=== PATIENT | male | born 1960 | race Caucasian/White ===

== ENCOUNTER → 2016-12-11 | Outpatient (CLI) | payer BC, OTHER | END | disposition home or self-care (01) | LOC: MW.CHFP 11:28 | PROVIDERS: ATTEND Physician Assistant | DX: K21.9 Gastro-esophageal reflux disease without esophagitis (principal) | CPT/HCPCS: 87338 ==

== ENCOUNTER 2017-04-05 08:28 | Emergency (ER) | payer BC, OTHER ==
--- NOTE | 2017-04-05 08:43 | EDM.PDOC ---
ED HPI GENERAL MEDICAL PROBLEM - General Chief Complaint: Laceration Stated Complaint: CUT FINGER ON RT HAND Time Seen by Provider: 04/05/17 08:42 Source of Information: Reports: Patient - History of Present Illness INITIAL COMMENTS - FREE TEXT/NARRATIVE: HISTORY AND PHYSICAL: History of present illness: []Patient working on a trailer to his pickup received crush injury to the distal tip of his right index finger with 2 cm linear laceration running from nailbed around to palmar surface no avulsion of nail bed associated no other injury no fever nausea vomiting chills sweats unaffected above the wrist, essentially unaffected above the distal phalanx entire limb is neurovascularly intact No fever nausea vomiting chills sweats Review of systems: As per history of present illness and below otherwise all systems reviewed and negative. Past medical history: As per history of present illness and as reviewed below otherwise noncontributory. Surgical history: As per history of present illness and as reviewed below otherwise noncontributory. Social history: No reported history of drug or alcohol abuse. Family history: As per history of present illness and as reviewed below otherwise noncontributory. Physical exam: HEENT: Atraumatic, normocephalic, pupils reactive, negative for conjunctival pallor or scleral icterus, mucous membranes moist, throat clear, neck supple, nontender, trachea midline. Lungs: Clear to auscultation, breath sounds equal bilaterally, chest nontender. Heart: S1S2, regular, negative for clicks, rubs, or JVD. Abdomen: Soft, nondistended, nontender. Negative for masses or hepatosplenomegaly. Negative for costovertebral tenderness. Pelvis: Stable nontender. Genitourinary: Deferred. Rectal: Deferred. Extremities: Atraumatic, negative for cords or calf pain. Neurovascular unremarkable. Neuro: Awake, alert, oriented. Cranial nerves II through XII unremarkable. Cerebellum unremarkable. Motor and sensory unremarkable throughout. Exam nonfocal. Skin as per history of present illness Diagnostics: []Right fifth digit Therapeutics: []Tetanus status up-to-date per patient 2013 Bactrim double strength by mouth twice a day #20 no refill Standard wound care Wound cleansed and explored Tube dressing splint for comfort and protection Impression: []Linear Laceration 2 cm distal right second digit Definitive disposition and diagnosis as appropriate pending reevaluation and review of above. Right 2-Index finger Pain Score (Numeric/FACES): 10 - Related Data Allergies Allergy/AdvReac Type Severity Reaction Status Date / Time Penicillins Allergy Cannot Verified 04/05/17 08:41 Remember Home Meds: Home Meds Omeprazole [Prilosec] 40 mg PO DAILY 10/01/15 [History] Past Medical History - Past Health History Medical/Surgical History: Denies Medical/Surgical History HEENT History: Reports: None Cardiovascular History: Reports: None Respiratory History: Reports: None Gastrointestinal History: Reports: GERD Genitourinary History: Reports: None Musculoskeletal History: Reports: Arthritis, Back Pain, Chronic Other Musculoskeletal History: states arthritis in feet Neurological History: Reports: None Psychiatric History: Reports: Anxiety Endocrine/Metabolic History: Reports: None Hematologic History: Reports: None Immunologic History: Reports: None Oncologic (Cancer) History: Reports: None Dermatologic History: Reports: None - Past Surgical History Musculoskeletal Surgical History: Reports: Other (See Below) Social & Family History - Tobacco Use Smoking Status *Q: Light Tobacco Smoker Years of Tobacco use: 30 Packs/Tins Daily: 1 - Recreational Drug Use Recreational Drug Use: No Drug Use in Last 12 Months: No ED ROS GENERAL - Review of Systems Review Of Systems: ROS reveals no pertinent complaints other than HPI. ED EXAM, SKIN/RASH Exam: See Below Course - Vital Signs Last Recorded V/S: Last Vital Signs Temp 36.9 C 04/05/17 08:37 Pulse 69 04/05/17 08:37 Resp 20 04/05/17 08:37 BP 148/97 H 04/05/17 08:37 Pulse Ox 95 04/05/17 08:37 - Orders/Labs/Meds Orders: Active Orders 24 hr Category Date Time Status Fingers Fourth Digit Rt F8 [CR] Stat Exams 04/05/17 08:41 Taken Meds: Medications Discontinued Medications Generic Name Dose Route Start Last Admin Trade Name Freq PRN Reason Stop Dose Admin Bacitracin 1 dose 04/05/17 08:50 04/05/17 09:10 Bacitracin Oint 1 Gm TOP 04/05/17 08:51 1 dose ONETIME ONE Administration Lidocaine HCl 20 ml 04/05/17 08:50 04/05/17 09:11 Xylocaine 1% INJECT 04/05/17 08:51 20 ml ONETIME ONE Administration Departure - Departure Time of Disposition: 09:27 Disposition: Home, Self-Care 01 Condition: Good Clinical Impression: Laceration - Discharge Information Referrals: PCP,None [Primary Care Provider] - Forms: ED Department Discharge Additional Instructions: Tube dressing Splint for comfort and protection Medication as prescribed Sutures out in 10-14 days Standard wound care instructions Keep wound clean and dry for 48 hours The following information is given to patients seen in the emergency department who are being discharged to home. This information is to outline your options for follow-up care. We provide all patients seen in our emergency department with a follow-up referral. The need for follow-up, as well as the timing and circumstances, are variable depending upon the specifics of your emergency department visit. If you don't have a primary care physician on staff, we will provide you with a referral. We always advise you to contact your personal physician following an emergency department visit to inform them of the circumstance of the visit and for follow-up with them and/or the need for any referrals to a consulting specialist. The emergency department will also refer you to a specialist when appropriate. This referral assures that you have the opportunity for follow-up care with a specialist. All of these measure are taken in an effort to provide you with optimal care, which includes your follow-up. Under all circumstances we always encourage you to contact your private physician who remains a resource for coordinating your care. When calling for follow-up care, please make the office aware that this follow-up is from your recent emergency room visit. If for any reason you are refused follow-up, please contact the [facility] emergency department at and asked to speak to the emergency department charge nurse. - My Orders Last 24 Hours: My Active Orders 04/05/17 08:41 Fingers Fourth Digit Rt F8 [CR] Stat - Assessment/Plan Last 24 Hours: My Active Orders 04/05/17 08:41 Fingers Fourth Digit Rt F8 [CR] Stat
[2017-04-05] MEDS ORDERED: Bacitracin Oint 1 GM U/D Packet TOP ONE (08:50)
[2017-04-05] MEDS ORDERED: Lidocaine 1% 20 ML MDV INJECT ONE (08:50)
[2017-04-05 09:50] VITALS: BP 142/89
--- NOTE | 2017-04-06 13:24 | CR ---
EXAM DATE: 04/05/17 PATIENT'S AGE: 56 Patient: SAMUEL MAYA Facility: [place], [place] Site . Site : 1960 Study: XRay Extremity Right [id number]/27/2017 8:58:10 AM Ordering Physician: Doctor Martines Final Report: HISTORY: Crush injury. Pain. Technique: Right index finger 3 views. Comparison: None. Findings: Index finger soft tissue swelling. No fracture or dislocation. Mild degenerative change of the thumb MCP joint. Joint spaces are otherwise maintained. No radiopaque foreign body. Impression: Soft tissue swelling. No acute bone abnormality. No radiopaque foreign body. Dictated by Lennox Nunez MD @ Apr 05 2017 9:07AM (Electronic Signature) Report Signed by Proxy. KEVIN
== END 2017-04-05 09:40 | disposition home or self-care (01) ==
LOC: MW.ED 08:28
DX: S61.210A Laceration without foreign body of right index finger without damage to nail, initial encounter (principal); K21.9 Gastro-esophageal reflux disease without esophagitis; F17.210 Nicotine dependence, cigarettes, uncomplicated; Z88.0 Allergy status to penicillin; Z79.899 Other long term (current) drug therapy; W23.1XXA Caught, crushed, jammed, or pinched between stationary objects, initial encounter
CPT/HCPCS: 73140-26-F8; 73140-F8; 99283

== ENCOUNTER 2017-05-20 22:41 | Emergency (ER) | payer BC, OTHER ==
[2017-05-20] MEDS ORDERED: Sodium Chloride 0.9% 1,000 ML IV ONE ×2 (23:11)
[2017-05-20 23:25] LABS: ACETAMINOPHEN < 3.0 ug/mL; CHLORIDE,CL 110 mmol/L (98-110); SODIUM,NA 141 mmol/L (136-146)
[2017-05-20] MEDS ORDERED: Ziprasidone Mesylate 20 MG Vial IM ONE (23:50)
[2017-05-20] MEDS ORDERED: Ziprasidone Mesylate 20 MG Vial ONE (23:52)
[2017-05-20] MEDS ORDERED: Water For Injection, Sterile 20 ML ONE (23:54)
[2017-05-21] MEDS ORDERED: Ziprasidone Mesylate 20 MG Vial IM ONE (00:23)
--- NOTE | 2017-05-21 00:24 | EDM.PDOCBH ---
ED HPI GENERAL MEDICAL PROBLEM - General Chief Complaint: Behavioral/Psych Stated Complaint: OVERDOSE Time Seen by Provider: 05/20/17 22:48 Source of Information: Reports: Patient History Limitations: Reports: No Limitations - History of Present Illness INITIAL COMMENTS - FREE TEXT/NARRATIVE: HISTORY AND PHYSICAL: History of present illness: [56-year-old male feeling depressed and drinking alcohol this evening now brought in by police after alleging that he took an overdose of clonazepam. Patient states he was feeling suicidal and he took the entire bottle of clonazepam. He denies other coingestants. Patient did not injure himself in any other way .He has no homicidal ideation.denies recent illness. Patient denies ever having been admitted for inpatient psychiatric care Review of systems: As per history of present illness and below otherwise all systems reviewed and negative. Past medical history: As per history of present illness and as reviewed below otherwise noncontributory. Surgical history: As per history of present illness and as reviewed below otherwise noncontributory. Social history: No reported history of drug or alcohol abuse. Family history: As per history of present illness and as reviewed below otherwise noncontributory. Physical exam: HEENT: Atraumatic, normocephalic, pupils reactive, negative for conjunctival pallor or scleral icterus, mucous membranes moist, throat clear, neck supple, nontender, trachea midline. Lungs: Clear to auscultation, breath sounds equal bilaterally, chest nontender. Heart: S1S2, regular, negative for clicks, rubs, or JVD. Abdomen: Soft, nondistended, nontender. Negative for masses or hepatosplenomegaly. Negative for costovertebral tenderness. Pelvis: Stable nontender. Genitourinary: Deferred. Rectal: Deferred. Extremities: Atraumatic, negative for cords or calf pain. Neurovascular unremarkable. Neuro: Awake, alert, clinically intoxicated and variably cooperative . Cranial nerves II through XII unremarkable. Cerebellum unremarkable. Motor and sensory unremarkable throughout. Exam nonfocal. Diagnostics: [EKG with normal sinus rhythm at 3 normal axis no STEMI interpreted by me] Therapeutics: [iV fluids administered] Impression: [] Plan: [patient depressed now status post alleged overdose of benzodiazepine.Patient is protecting his airway and requires no respiratory support. Full workup unremarkable. given that patient has been endorsing suicidality admits to intentional overdose case discussed with psychiatry at [facility] Dr. Suzanne Meyer accepts the patient in transfer. Patient also discussed with Dr. Polanco emergency medicine doctor who will see the patient when he arrives at [place]. Patient stable for transfer Critical care 73 minutes Definitive disposition and diagnosis as appropriate pending reevaluation and review of above. - Related Data Allergies Allergy/AdvReac Type Severity Reaction Status Date / Time Penicillins Allergy Cannot Verified 04/05/17 08:41 Remember Home Meds: Home Meds Omeprazole [Prilosec] 40 mg PO DAILY 10/01/15 [History] ClonazePAM [KlonoPIN] 05/21/17 [History] Past Medical History - Past Health History Medical/Surgical History: Denies Medical/Surgical History HEENT History: Reports: None Cardiovascular History: Reports: None Respiratory History: Reports: None Gastrointestinal History: Reports: GERD Genitourinary History: Reports: None Musculoskeletal History: Reports: Arthritis, Back Pain, Chronic Other Musculoskeletal History: states arthritis in feet Neurological History: Reports: None Psychiatric History: Reports: Anxiety Endocrine/Metabolic History: Reports: None Hematologic History: Reports: None Immunologic History: Reports: None Oncologic (Cancer) History: Reports: None Dermatologic History: Reports: None - Infectious Disease History Infectious Disease History: Reports: Chicken Pox, Measles, Mumps - Past Surgical History Musculoskeletal Surgical History: Reports: Other (See Below) Social & Family History - Family History Family Medical History: Noncontributory - Tobacco Use Smoking Status *Q: Light Tobacco Smoker Years of Tobacco use: 30 Packs/Tins Daily: 1 - Caffeine Use Caffeine Use: Reports: None, Soda Caffeine Use Comment: non-caffeinated - Recreational Drug Use Recreational Drug Use: No Drug Use in Last 12 Months: No ED ROS GENERAL - Review of Systems Review Of Systems: See Below (history of present illness) ED EXAM, BEHAVIORAL HEALTH - Physical Exam Exam: See Below (history of present illness) COURSE, BEHAVIORAL HEALTH COMP - Course Vital Signs: Last Vital Signs Temp 36.4 C 05/20/17 22:44 Pulse 84 05/20/17 22:44 Resp 16 05/20/17 22:44 BP 120/83 05/20/17 22:44 Pulse Ox 93 L 05/20/17 22:44 Orders, Labs, Meds: Active Orders 24 hr Category Date Time Status EKG 12 Lead [EKG Documentation Completion] [RC] STAT Care 05/20/17 22:53 Active Peripheral IV Insertion Adult [OM.PC] Stat Oth 05/20/17 22:49 Ordered Laboratory Tests 05/20/17 05/20/17 05/21/17 Range/Units 22:59 22:59 00:05 WBC 7.80 (4.0-11.0) K/uL RBC 4.29 L (4.50-5.90) M/uL Hgb 12.8 L (13.0-17.0) g/dL Hct 36.7 L (38.0-50.0) % MCV 85.5 (80.0-98.0) fL MCH 29.8 (27.0-32.0) pg MCHC 34.9 (31.0-37.0) g/dL RDW Std Deviation 40.9 (28.0-62.0) fl RDW Coeff of Jina 13 (11.0-15.0) % Plt Count 216 (150-400) K/uL MPV 10.10 (7.40-12.00) fL Neut % (Auto) 61.8 (48.0-80.0) % Lymph % (Auto) 28.6 (16.0-40.0) % [place] % (Auto) 8.5 (0.0-15.0) % Eos % (Auto) 1.0 (0.0-7.0) % Baso % (Auto) 0.1 (0.0-1.5) % Neut # (Auto) 4.8 (1.4-5.7) K/uL Lymph # (Auto) 2.2 (0.6-2.4) K/uL [place] # (Auto) 0.7 (0.0-0.8) K/uL Eos # (Auto) 0.1 (0.0-0.7) K/uL Baso # (Auto) 0.0 (0.0-0.1) K/uL Nucleated RBC % 0.0 /100WBC Nucleated RBCs # 0 K/uL Sodium 141 (136-146) mmol/L Potassium 4.0 (3.5-5.1) mmol/L Chloride 110 (98-110) mmol/L Carbon Dioxide 23 (21-31) mmol/L BUN 12 (6.0-23.0) mg/dL Creatinine 0.9 (0.6-1.5) mg/dL Est Cr Clr Drug Dosing TNP Estimated GFR (MDRD) > 60.0 ml/min Glucose 90 (60-110) mg/dL Calcium 9.0 (8.8-10.8) mg/dL Total Bilirubin 0.4 (0.1-1.5) mg/dL AST 24 (5-40) IU/L ALT 26 (8-54) IU/L Alkaline Phosphatase 78 (40-150) Total Protein 6.6 (6.0-8.0) g/dL Albumin 3.6 (3.5-5.0) g/dL Globulin 3.0 (2.0-3.5) g/dL Albumin/Globulin Ratio 1.2 L (1.3-2.8) Salicylates < 5.0 (0-20) mg/dL Urine Opiates Screen NEGATIVE (NEGATIVE) Ur Oxycodone Screen NEGATIVE (NEGATIVE) Urine Methadone Screen NEGATIVE (NEGATIVE) Acetaminophen < 3.0 ug/mL Ur Barbiturates Screen NEGATIVE (NEGATIVE) Ur Phencyclidine Scrn NEGATIVE (NEGATIVE) Ur Amphetamine Screen NEGATIVE (NEGATIVE) U Methamphetamines Scrn NEGATIVE (NEGATIVE) U Benzodiazepines Scrn NEGATIVE (NEGATIVE) U Cocaine Metab Screen NEGATIVE (NEGATIVE) U Marijuana (THC) Screen NEGATIVE (NEGATIVE) Medications Discontinued Medications Generic Name Dose Route Start Last Admin Trade Name Freq PRN Reason Stop Dose Admin Sodium Chloride 1,000 mls @ 999 mls/hr 05/20/17 23:11 05/20/17 23:15 Normal Saline IV 05/21/17 00:11 999 mls/hr STAT ONE Administration Sodium Chloride 1,000 mls @ 999 mls/hr 05/20/17 23:11 Normal Saline IV 05/21/17 00:11 STAT ONE Sterile Water Confirm 05/20/17 23:54 05/21/17 00:04 Sterile Water For Injection Administered 05/20/17 23:55 1.2 ml Dose Administration 20 mls @ as directed .ROUTE .STK-MED ONE Ziprasidone 10 mg 05/20/17 23:50 05/20/17 23:59 Geodon IM 05/20/17 23:51 10 mg ONETIME ONE Administration Ziprasidone Confirm 05/20/17 23:52 05/21/17 00:02 Geodon Administered 05/20/17 23:53 Not Given Dose 20 mg .ROUTE .STK-MED ONE Ziprasidone 10 mg 05/21/17 00:23 Geodon IM 05/21/17 00:24 ONETIME ONE Departure - Departure Time of Disposition: 00:30 Disposition: DC/Tfer to Psych Hosp/Unit 65 Condition: Fair Clinical Impression: Depression, Suicidal ideation, Intentional benzodiazepine overdose - Discharge Information - My Orders Last 24 Hours: My Active Orders 05/20/17 22:49 Peripheral IV Insertion Adult [OM.PC] Stat 05/20/17 22:53 EKG 12 Lead [EKG Documentation Completion] [RC] STAT - Assessment/Plan Last 24 Hours: My Active Orders 05/20/17 22:49 Peripheral IV Insertion Adult [OM.PC] Stat 05/20/17 22:53 EKG 12 Lead [EKG Documentation Completion] [RC] STAT
[2017-05-21 04:43] VITALS: BP 107/66
== END 2017-05-21 01:18 ==
LOC: MW.ED 22:41
DX: T42.4X2A Poisoning by benzodiazepines, intentional self-harm, initial encounter (principal); F32.9 Major depressive disorder, single episode, unspecified; K21.9 Gastro-esophageal reflux disease without esophagitis; F17.210 Nicotine dependence, cigarettes, uncomplicated; Z88.0 Allergy status to penicillin; Z79.899 Other long term (current) drug therapy
CPT/HCPCS: 36415; 80053; 80305; 85025; 93005; 96360; 96361; 96372; 99285; G0480; J3486; J7040; 99291

== ENCOUNTER 2017-06-10 23:43 | Emergency (ER) | payer BC ==
--- NOTE | 2017-06-10 23:49 | EDM.PDOC ---
ED HPI GENERAL MEDICAL PROBLEM - General Chief Complaint: Chest Pain Stated Complaint: PT HAS CHEST PAINS Time Seen by Provider: 06/10/17 23:48 - History of Present Illness INITIAL COMMENTS - FREE TEXT/NARRATIVE: HISTORY AND PHYSICAL: History of present illness: Patient 56-year-old white male presents with a concern of medical clearance for incarceration is currently in custody of law enforcement Review of systems: As per history of present illness and below otherwise all systems reviewed and negative. Past medical history: As per history of present illness and as reviewed below otherwise noncontributory. Surgical history: As per history of present illness and as reviewed below otherwise noncontributory. Social history: No reported history of drug or alcohol abuse. Family history: As per history of present illness and as reviewed below otherwise noncontributory. Physical exam: HEENT: Atraumatic, normocephalic, pupils reactive, negative for conjunctival pallor or scleral icterus, mucous membranes moist, throat clear, neck supple, nontender, trachea midline. Lungs: Clear to auscultation, breath sounds equal bilaterally, chest nontender. Heart: S1S2, regular, negative for clicks, rubs, or JVD. Abdomen: Soft, nondistended, nontender. Negative for masses or hepatosplenomegaly. Negative for costovertebral tenderness. Pelvis: Stable nontender. Genitourinary: Deferred. Rectal: Deferred. Extremities: Atraumatic, negative for cords or calf pain. Neurovascular unremarkable. Neuro: Awake, alert, oriented. Cranial nerves II through XII unremarkable. Cerebellum unremarkable. Motor and sensory unremarkable throughout. Exam nonfocal. Diagnostics: EKG Therapeutics: None Impression: #1 medically clear for incarceration Definitive disposition and diagnosis as appropriate pending reevaluation and review of above. - Related Data Allergies Allergy/AdvReac Type Severity Reaction Status Date / Time Penicillins Allergy Cannot Verified 04/05/17 08:41 Remember Home Meds: Home Meds Omeprazole [Prilosec] 40 mg PO DAILY 10/01/15 [History] ClonazePAM [KlonoPIN] 05/21/17 [History] Past Medical History - Past Health History Medical/Surgical History: Denies Medical/Surgical History HEENT History: Reports: None Cardiovascular History: Reports: None Respiratory History: Reports: None Gastrointestinal History: Reports: GERD Genitourinary History: Reports: None Musculoskeletal History: Reports: Arthritis, Back Pain, Chronic Other Musculoskeletal History: states arthritis in feet Neurological History: Reports: None Psychiatric History: Reports: Anxiety Endocrine/Metabolic History: Reports: None Hematologic History: Reports: None Immunologic History: Reports: None Oncologic (Cancer) History: Reports: None Dermatologic History: Reports: None - Infectious Disease History Infectious Disease History: Reports: Chicken Pox, Measles, Mumps - Past Surgical History Musculoskeletal Surgical History: Reports: Other (See Below) Social & Family History - Family History Family Medical History: Noncontributory - Tobacco Use Smoking Status *Q: Light Tobacco Smoker Years of Tobacco use: 30 Packs/Tins Daily: 1 - Caffeine Use Caffeine Use: Reports: None, Soda Caffeine Use Comment: non-caffeinated - Recreational Drug Use Recreational Drug Use: No Drug Use in Last 12 Months: No ED ROS GENERAL - Review of Systems Review Of Systems: ROS reveals no pertinent complaints other than HPI. ED EXAM, GENERAL - Physical Exam Exam: See Below (See dictated) Course - Orders/Labs/Meds Orders: Active Orders 24 hr Category Date Time Status EKG 12 Lead [EKG Documentation Completion] [RC] STAT Care 06/10/17 23:48 Ordered Departure - Departure Time of Disposition: 23:49 Disposition: Home, Self-Care 01 Condition: Good Clinical Impression: Medical clearance for incarceration - Discharge Information Additional Instructions: The following information is given to patients seen in the emergency department who are being discharged to home. This information is to outline your options for follow-up care. We provide all patients seen in our emergency department with a follow-up referral. The need for follow-up, as well as the timing and circumstances, are variable depending upon the specifics of your emergency department visit. If you don't have a primary care physician on staff, we will provide you with a referral. We always advise you to contact your personal physician following an emergency department visit to inform them of the circumstance of the visit and for follow-up with them and/or the need for any referrals to a consulting specialist. The emergency department will also refer you to a specialist when appropriate. This referral assures that you have the opportunity for followup care with a specialist. All of these measure are taken in an effort to provide you with optimal care, which includes your followup. Under all circumstances we always encourage you to contact your private physician who remains a resource for coordinating your care. When calling for followup care, please make the office aware that this follow-up is from your recent emergency room visit. If for any reason you are refused follow-up, please contact the [facility] emergency department at and asked to speak to the emergency department charge nurse. Follow-up primary medical doctor on today's return as needed as discussed - My Orders Last 24 Hours: My Active Orders 06/10/17 23:48 EKG 12 Lead [EKG Documentation Completion] [RC] STAT - Assessment/Plan Last 24 Hours: My Active Orders 06/10/17 23:48 EKG 12 Lead [EKG Documentation Completion] [RC] STAT
[2017-06-11 00:11] VITALS: BP 133/98
== END 2017-06-11 ==
LOC: MW.ED 23:43
DX: Z02.89 Encounter for other administrative examinations (principal); F17.210 Nicotine dependence, cigarettes, uncomplicated
CPT/HCPCS: 93005; 99282; 99285-25

== ENCOUNTER 2018-02-17 11:04 | Emergency (ER) | payer SELFPAY ==
[2018-02-17 11:19] VITALS: BP 121/70
[2018-02-17] MEDS ORDERED: Lidocaine 1% 10 ML MDV INJECT ONE (11:37)
--- NOTE | 2018-02-17 11:37 | EDM.PDOC ---
ED HPI GENERAL MEDICAL PROBLEM - General Chief Complaint: Genitourinary Problem Stated Complaint: UNK ISSUES Time Seen by Provider: 02/17/18 11:23 - History of Present Illness INITIAL COMMENTS - FREE TEXT/NARRATIVE: HISTORY AND PHYSICAL: History of present illness: The patient is a 57-year-old male with a history of hypertension and GERD who presents with complaints of a persistent erection since 5 AM. This has never happened before and he did not do any illicit drugs and has no pre-existing medical problems related blood disorders or problems. The patient states that he takes medications for blood pressure and takes trazodone and he looked that up on the computer and he was concerned that that may have caused this to happen. He says that he has pain in the penis but no abdominal pain no scrotal pain and he was able to urinate this morning. He has no other systemic complaints and no fevers chills or flank pain. Review of systems: As per history of present illness and below otherwise all systems reviewed and negative. Past medical history: As per history of present illness and as reviewed below otherwise noncontributory. Surgical history: As per history of present illness and as reviewed below otherwise noncontributory. Social history: No reported history of drug or alcohol abuse. Family history: As per history of present illness and as reviewed below otherwise noncontributory. Physical exam: General: Well-developed well-nourished man who is nontoxic and vital signs are noted by me. HEENT: Atraumatic, normocephalic negative for conjunctival pallor or scleral icterus, mucous membranes moist, throat clear, neck supple, nontender, trachea midline. Lungs: Clear to auscultation, breath sounds equal bilaterally, chest nontender. Heart: S1S2, regular and rhythm no overt murmurs Abdomen: Soft, nondistended, nontender. Negative for masses or hepatosplenomegaly. NABS Pelvis: Stable nontender. Genitourinary: Testicles are descended bilaterally and there is no gross lymphadenopathy. A firm erection is seen is only mildly tender to palpation Rectal: Deferred. Extremities: Atraumatic, negative for cords or calf pain. Neurovascular unremarkable. Neuro: Awake, alert, oriented. Cranial nerves II through XII unremarkable. Cerebellum unremarkable. Motor and sensory unremarkable throughout. Exam nonfocal. Diagnostics: [] Therapeutics: Lidocaine without epinephrine, phenylephrine in normal saline for Dr. Rasheed's procedure Please see Dr. Rasheed's consult note for procedure and in ED care Dr. Rasheed was counseled at 1135 am Please note that the patient had a vasovagal event during the procedure. He was given medications per Dr. Rasheed's direction. Dressing was placed by Dr. Rasheed which he needs to remove tomorrow. Patient will continue to be monitored from a hemodynamic standpoint and discharged we have planned when he is feeling improved. Impression: Priapism/persistent erection, improved Definitive disposition and diagnosis as appropriate pending reevaluation and review of above. erection Pain Score (Numeric/FACES): 8 - Related Data Allergies Allergy/AdvReac Type Severity Reaction Status Date / Time Penicillins Allergy Cannot Verified 02/17/18 11:15 Remember Home Meds: Home Meds Indomethacin [Indocin] 50 mg PO TID 02/17/18 [History] Lisinopril 10 mg PO DAILY 02/17/18 [History] Omeprazole 40 mg PO DAILY 02/17/18 [History] traZODone HCl [Trazodone HCl] 50 mg PO BEDTIME 02/17/18 [History] Past Medical History - Past Health History Medical/Surgical History: Denies Medical/Surgical History HEENT History: Reports: None Cardiovascular History: Reports: Hypertension Respiratory History: Reports: None Gastrointestinal History: Reports: GERD Genitourinary History: Reports: None Musculoskeletal History: Reports: Arthritis, Back Pain, Chronic, Gout Other Musculoskeletal History: states arthritis in feet Neurological History: Reports: None Psychiatric History: Reports: Anxiety Endocrine/Metabolic History: Reports: None Hematologic History: Reports: None Immunologic History: Reports: None Oncologic (Cancer) History: Reports: None Dermatologic History: Reports: None - Infectious Disease History Infectious Disease History: Reports: Chicken Pox, Measles, Mumps - Past Surgical History Head Surgeries/Procedures: Reports: None Musculoskeletal Surgical History: Reports: Other (See Below) Social & Family History - Family History Family Medical History: Noncontributory - Tobacco Use Smoking Status *Q: Current Every Day Smoker Years of Tobacco use: 25 Packs/Tins Daily: 0.1 - Caffeine Use Caffeine Use: Reports: Coffee Caffeine Use Comment: non-caffeinated - Alcohol Use Days Per Week of Alcohol Use: 3 Number of Drinks Per Day: 2 Total Drinks Per Week: 6 - Recreational Drug Use Recreational Drug Use: No ED ROS GENERAL - Review of Systems Review Of Systems: ROS reveals no pertinent complaints other than HPI. ED EXAM, GENERAL - Physical Exam Exam: See Below (see dictation) Course - Vital Signs Last Recorded V/S: Last Vital Signs Temp 36.0 C 02/17/18 11:17 Pulse 76 02/17/18 11:17 Resp 20 02/17/18 11:17 BP 121/70 02/17/18 11:17 Pulse Ox 97 02/17/18 11:17 - Orders/Labs/Meds Orders: Active Orders 24 hr Category Date Time Status Notify Provider Consults [RC] ASDIRECTED Care 02/17/18 11:46 Active Consult to Physician [CONS] Stat Cons 02/17/18 11:46 Active Phenylephrine [Jose-Synephrine] 10 mg Med 02/17/18 11:45 Active Sodium Chloride 0.9% [Normal Saline] 500 ml IV ONETIME Medication Orders Phenylephrine HCl 10 mg/ (Sodium Chloride) 501 mls @ 10 mls/hr IV ONETIME ONE Stop: 02/19/18 13:50 Meds: Medications Generic Name Dose Route Start Last Admin Trade Name Freq PRN Reason Stop Dose Admin Phenylephrine HCl 10 mg/ 501 mls @ 10 mls/hr 02/17/18 11:45 Sodium Chloride IV 02/19/18 13:50 ONETIME ONE Discontinued Medications Generic Name Dose Route Start Last Admin Trade Name Freq PRN Reason Stop Dose Admin Hydrocodone Bitart/Acetaminophen 1 tab 02/17/18 11:52 02/17/18 12:08 [place] 325-7.5 Mg PO 02/17/18 11:53 1 tab ONETIME ONE Administration Lidocaine HCl 10 ml 02/17/18 11:37 Xylocaine 1% INJECT 02/17/18 11:38 ONETIME ONE Lidocaine HCl 10 ml 02/17/18 11:37 Xylocaine-Mpf 1% INJECT 02/17/18 11:38 ONETIME ONE Departure - Departure Time of Disposition: 13:00 Disposition: Home, Self-Care 01 Condition: Good Clinical Impression: Prolonged erection - Discharge Information Referrals: PCP,None [Primary Care Provider] - Forms: ED Department Discharge Additional Instructions: The following information is given to patients seen in the emergency department who are being discharged to home. This information is to outline your options for follow-up care. We provide all patients seen in our emergency department with a follow-up referral. The need for follow-up, as well as the timing and circumstances, are variable depending upon the specifics of your emergency department visit. If you don't have a primary care physician on staff, we will provide you with a referral. We always advise you to contact your personal physician following an emergency department visit to inform them of the circumstance of the visit and for follow-up with them and/or the need for any referrals to a consulting specialist. The emergency department will also refer you to a specialist when appropriate. This referral assures that you have the opportunity for followup care with a specialist. All of these measure are taken in an effort to provide you with optimal care, which includes your followup. Under all circumstances we always encourage you to contact your private physician who remains a resource for coordinating your care. When calling for followup care, please make the office aware that this follow-up is from your recent emergency room visit. If for any reason you are refused follow-up, please contact the [facility] emergency department at and ask to speak to the emergency department charge nurse. [facility]- [facility] [address] [place] [id number] [facility] [address] [place] [id number] Please remove the dressing tomorrow that was placed in the ER by Dr. Rasheed. Please call and schedule a follow-up appointment with your provider or one of our providers in the next 2 days and return to ER as needed and as discussed. Push hydration. - My Orders Last 24 Hours: My Active Orders 02/17/18 11:45 Phenylephrine [Jose-Synephrine] 10 mg Sodium Chloride 0.9% [Normal Saline] 500 ml IV ONETIME 02/17/18 11:46 Notify Provider Consults [RC] ASDIRECTED Consult to Physician [CONS] Stat - Assessment/Plan Last 24 Hours: My Active Orders 02/17/18 11:45 Phenylephrine [Jose-Synephrine] 10 mg Sodium Chloride 0.9% [Normal Saline] 500 ml IV ONETIME 02/17/18 11:46 Notify Provider Consults [RC] ASDIRECTED Consult to Physician [CONS] Stat
[2018-02-17] MEDS ORDERED: Acetaminophen/HYDROcodone 325-7.5 MG Tab PO ONE (11:52)
[2018-02-17] MEDS ORDERED: GLYCOPYRROLATE 0.2 MG/ML IVPUSH ONE ×3 (12:47→12:54)
[2018-02-17] MEDS ORDERED: Sodium Chloride 0.9% 1,000 ML IV ONE (13:06)
--- NOTE | 2018-02-17 17:41 | CONS ---
DATE OF CONSULTATION: DATE OF : 1960 PRIMARY CARE PHYSICIAN: None PCP He is 57-year-old. He was seen in the emergency room with priapism. Apparently, he woke up at 5 in the morning with an erection. I was called about him to go see him in the emergency room about 11:00 a.m. or 11:30, somewhere around that time. He thinks it might be related to the trazodone that he took at night. Has had no previous similar problems in the past. PHYSICAL EXAMINATION: GENERAL: He is alert. He is oriented. He is in pain. GASTROINTESTINAL: The abdominal exam is negative. GENITOURINARY: External genitalia priapism. Testicles are normal. CONCLUSION: Priapism. PLAN: Irrigation, which was accomplished by mixing 10 mg of Jose-Synephrine in 500 mL of normal saline. The penile shaft was painted with Betadine and sterile towels were applied around it. Lidocaine 1% was infiltrated in the skin at a 90 degrees angle in the midshaft, then an 18-gauge needle was introduced in the corpus cavernosum and the erection was taken down by irrigating the corpora cavernosa with the prepared solution. Towards the end of the treatment, the detumescence was complete. The light pressure dressing was applied using 4 x 4s and Coban tape. The patient had a vasovagal reaction and I started IV fluids on him and gave him a total of 0.3 mg of Robinul IV. He was stable when I left and then he was turned over to the ER physician. CLARK / CRISPIN /[id number]
== END 2018-02-17 13:38 | disposition home or self-care (01) ==
LOC: MW.ED 11:04
DX: N48.30 Priapism, unspecified (principal); I10 Essential (primary) hypertension; F17.210 Nicotine dependence, cigarettes, uncomplicated; K21.9 Gastro-esophageal reflux disease without esophagitis; M19.90 Unspecified osteoarthritis, unspecified site; Z79.899 Other long term (current) drug therapy; Z88.0 Allergy status to penicillin
CPT/HCPCS: 96361; 96374; 96375; 99284; A9270; J2370; J7040